=== PATIENT | male | born 1995 | race Caucasian/White ===

== ENCOUNTER 2019-02-03 18:56 | Emergency (ER) | payer MEDICAID ==
--- NOTE | 2019-02-03 19:05 | EDPHY ---
H & P Time Seen by Provider: 02/03/19 19:04 HPI/ROS: HPI: This is a 23-year-old male who presents with Chief Complaint: Mental health evaluation Location: Psychiatric Quality: Mental health evaluation Duration: Years Signs and Symptoms: no auditory hallucinations, no visual hallucinations, + suicidal ideation with no plan, now homicidal ideation, no paranoia Timing: Worse the last month Severity: Moderate to severe Context: Patient presents voluntarily with request for mental health evaluation as he has Medicaid and has unable to be seen or obtain a counselor over the last several months. He reports increasing depression and anxiety with a panic attack at this afternoon. He moved to [place] and lives with his girlfriend who is very supportive. He notes that 3 years ago he stopped using of vapor at 18 mg of nicotine and noticed an increase in depression anxiety. Prior to that he had been on SSRIs since the age of 16. His mother suffers from bipolar disease and has a lot of delusions and paranoia that has caused him great anxiety. His girlfriend reports that over the last month he has been drinking almost nightly which before it was only once per week. She worries about him when he was home alone. He reports "being in a dark place." He has thoughts of suicide but no actual plan. Patient was seen by PCP 2-53 weeks ago with laboratory studies that were unremarkable per patient. Enrolled to start [facility] in the fall. Modifying Factors: Taking [id number] [employer] Wort Comment: ROS: A comprehensive 10 system review of systems is otherwise negative aside from elements mentioned in the history of present illness. MEDICAL/SURGICAL/SOCIAL HISTORY: Medical history: Depression, anxiety Surgical history: [place] teeth removal Social history: Never smoked. Drinks alcohol almost nightly. Family history mother has bipolar disease and 2 uncles have schizophrenia. CONSTITUTIONAL: Well-developed, well-nourished tidy cooperative white male, awake and alert, no obvious distress HEENT: Atraumatic and normocephalic, PERRL, EOMI. Nares patent; no rhinorrhea; no nasal mucosal edema. Tympanic membranes clear. Oropharynx clear, no exudate and moist pink mucosa. Airway patent. No lymphadenopathy. No meningismus. Cardiovascular: Normal S1/S2, regular rate, regular rhythm, without murmur rub or gallop. PULMONARY/CHEST: Symmetrical and nontender. Clear to auscultation bilaterally. Good air movement. No accessory muscle usage. ABDOMEN: Soft, nondistended, nontender, no rebound, no guarding, no peritoneal signs, no masses or organomegaly. No CVAT. EXTREMITIES: 2/2 pulses, strength 5/5, no deformities, no clubbing, no cyanosis or edema. NEUROLOGICAL: no focal neuro deficits. GCS 15. SKIN: Warm and dry, no erythema. no rash. Good capillary refill. PSYCH: Good eye contact, now flight of ideas, organized thought process, good insight and judgment, no auditory hallucinations, no visual hallucinations, + suicidal ideation with no plan, now homicidal ideation, no paranoia Source: Patient Exam Limitations: No limitations - Medical/Surgical History Hx Asthma: No Hx Chronic Respiratory Disease: No Hx Diabetes: No Hx Cardiac Disease: No Hx Renal Disease: No Hx Cirrhosis: No Hx Alcoholism: No Hx HIV/AIDS: No Hx Splenectomy or Spleen Trauma: No Other PMH: denies - Social History Smoking Status: Never smoked Constitutional: Initial Vital Signs Temperature (C) 36.4 C 02/03/19 19:04 Heart Rate 99 02/03/19 19:04 Respiratory Rate 16 02/03/19 19:04 Blood Pressure 150/76 H 02/03/19 19:04 O2 Sat (%) 97 02/03/19 19:04 O2 Delivery Mode Room Air Allergies/Adverse Reactions: Penicillins Allergy (Verified 03/31/18 23:22) Home Medications: Medication Instructions Recorded [facility] 03/31/18 Medical Decision Making ED Course/Re-evaluation: Vital signs reviewed and show elevated blood pressure upon arrival. Voluntary mental health assessment ordered. Will not repeat laboratory studies due to patient's concern of financial cost. Urine drug screen is unremarkable. Given p.o. Ativan 1 mg. Medically clear for mental health assessment. 1930: [facility] notified of mental health evaluation 2005: [facility] evaluation and recommends intake at [facility] crisis Center this evening. They do not believe that inpatient psychiatric admission or M1 hold is appropriate either. This patient was seen under the supervision of my secondary supervising physician. I evaluated and cared for this patient independently. Differential Diagnosis: Differential diagnosis includes but is not limited to major depression, anxiety disorder, schizophrenia, bipolar disorder, intoxicant use, suicidal ideation, psychosis, pola. - Data Points Laboratory Results: 05/26/19 19:22 Urine Opiates Screen NEGATIVE (NEGATIVE) Urine Barbiturates NEGATIVE (NEGATIVE) Ur Phencyclidine Scrn NEGATIVE (NEGATIVE) Ur Amphetamine Screen NEGATIVE (NEGATIVE) U Benzodiazepines Scrn NEGATIVE (NEGATIVE) Urine Cocaine Screen NEGATIVE (NEGATIVE) U Marijuana (THC) Screen NEGATIVE (NEGATIVE) Medications Given: Discontinued Medications Lorazepam (Ativan) 1 mg PO EDNOW ONE Stop: 02/03/19 19:25 Last Admin: 02/03/19 19:33 Dose: 1 mg Departure - Departure Disposition: Home, Routine, Self-Care Clinical Impression: Anxiety and depression Condition: Good Instructions: Depression (ED), Anxiety (ED) Additional Instructions: Please go directly over to the [facility] crisis Center for evaluation. Call 911 if you have thoughts of hurting or killing yourself or anyone else, or have any new or worsening symptoms that concern you. Referrals: [facility],. [Clinic] - As per Instructions
[2019-02-03] MEDS ORDERED: LORazepam 1 MG TAB PO ONE (19:24)
[2019-02-03 20:23] VITALS: BP 149/75
== END 2019-02-03 20:22 | disposition home or self-care (01) ==
DX: F41.9 Anxiety disorder, unspecified (principal); F32.9 Major depressive disorder, single episode, unspecified
CPT/HCPCS: 80305